=== PATIENT | male | born 1965 | race Two or more races ===

== ENCOUNTER 2019-12-05 21:58 | Inpatient (IN) | payer OTHER ==
[~2019-12-05] VITALS: Ht 172.7 cm; Wt 110.9 kg
[2019-12-06] VITALS (23 sets, daily range): BP systolic 106–142; BP diastolic 38–86
[2019-12-06 00:17] LABS: Alanine Aminotransferase 82 U/L (16-61); Albumin 3.6 g/dL (3.4-5.0); Anion Gap 7 (5-15); Aspartate Aminotransferase 43 U/L (15-37); BUN/Creatinine Ratio 10.7; Blood Urea Nitrogen 13 mg/dL (7-18); Calcium 8.5 mg/dL (8.5-10.1); Carbon Dioxide 20 mmol/L (21-32); Chloride 106 mmol/L (98-107); GFR African American 79 mL/min; GFR Non-African American 66 mL/min; Glucose 106 mg/dL (74-106); Potassium 4.6 mmol/L (3.5-5.1); Sodium 133 mmol/L (136-145)
[2019-12-06 00:20] LABS: Alkaline Phosphatase 95 U/L (45-117); Bilirubin, Total 0.6 mg/dL (0.2-1.0); Total Protein 8.7 g/dL (6.4-8.2)
[2019-12-06 00:20] LABS: Basophils # (auto) 0.1 uL; Basophils % (auto) 0.7 % (0.0-2.0); Eosinophils # (auto) 0.3 uL; Hematocrit 46.2 % (41.0-53.0); Hemoglobin 15.3 g/dL (13.5-17.5); Lymphocytes # (auto) 1.3 uL; Lymphocytes % (auto) 9.3 % (10.0-50.0); Mean Corpuscular Hgb Conc. 33.1 g/dL (32.0-36.0); Mean Corpuscular Volume 84.4 fL (80.0-100.0); Monocytes # (auto) 0.7 uL; Monocytes % (auto) 4.9 % (0.0-12.0); Neutrophils # (auto) 11.2 uL; Neutrophils % (auto) 83.1 % (37.0-80.0); Platelet Count (auto) 174 10^3/uL (140-450); Red Blood Cells 5.47 10^6/uL (4.5-5.90); Red Cell Distribution Width 13.6 % (11.8-14.3); White Blood Cell 13.4 10^3/uL (4.4-10.8)
[2019-12-06 00:28] LABS: INR 1.06 (0.9-1.15); Partial Thromboplastin Time 28.8 sec (23.64-32.05)
[2019-12-06] MEDS ORDERED: guaiFENesin-DM 100/10mg/5ml SYR PO ONE (01:45)
[2019-12-06] MEDS ORDERED: dilTIAZem 25 MG/5 ML VIAL IV ONE ×2 (02:15→05:45)
[2019-12-06 03:47] LABS: Amylase 50 U/L (25-115); Lipase 90 U/L (73-393)
[2019-12-06] MEDS ORDERED: ADENOSINE 6 MG/2 ML INJ IV ONE ×4 (05:27→05:45)
[2019-12-06] MEDS ORDERED: D5W/SOD CHL 0.45% 1,000 ML IV ONE (05:30)
[2019-12-06] MEDS ORDERED: NITROGLYCERIN 0.4 MG SL TAB SL PRN (05:30)
[2019-12-06] MEDS ORDERED: dilTIAZem 125mg/125ml BAG KIT 125 ML IV ONE (05:45)
[2019-12-06] MEDS: MORPHINE SULF INJ 2 MG/ML SYRINGE 1ML IV PRN ×2 (07:49→10:00)
[2019-12-06] MEDS: ASPirin 81 mg TAB PO SCH (10:21)
[2019-12-06] MEDS: METOPROLOL TARTRATE 50 MG TAB PO SCH (10:21)
[2019-12-06] MEDS: DIGOXIN 0.125 MG TAB PO SCH (10:22)
[2019-12-06] MEDS: ENOXAPARIN SOD 40 MG/0.4 ML SYRINGE SC SCH (10:22)
[2019-12-06] MEDS: PROMETHAZINE W/CODEINE 5 ML ORAL SYRUP PO PRN (11:05)
[2019-12-06] MEDS: cefTRIAXone 1GM/50ML D5W 50 ML IV SCH (13:09)
[2019-12-06] MEDS: AZITHROMYCIN 250 MG TAB PO SCH (13:12)
[2019-12-06] MEDS: ALBUTEROL SULF 2.5 MG/0.5ML(0.5%) NEB SOLN NEB SCH ×2 (13:45→22:00)
[2019-12-06] MEDS: HYDROcodone-ACET 10/325MG TAB PO PRN ×2 (15:01→20:13)
[2019-12-06] MEDS: NAPROXEN 500 MG TAB PO SCH ×2 (15:58→21:41)
[2019-12-06] MEDS ORDERED: IOHEXOL 350 MG/ML 100ML IJ ONE (16:01)
[2019-12-07] VITALS (18 sets, daily range): BP systolic 100–127; BP diastolic 48–87
[2019-12-07 05:27] LABS: Mean Corpuscular Hemoglobin 28.2 pg (28.0-32.0); Mean Corpuscular Hgb Conc. 33.4 g/dL (32.0-36.0); Mean Corpuscular Volume 84.4 fL (80.0-100.0); Platelet Count (auto) 118 10^3/uL (140-450); Red Blood Cells 5.33 10^6/uL (4.5-5.90); Red Cell Distribution Width 13.9 % (11.8-14.3); White Blood Cell 7.1 10^3/uL (4.4-10.8)
[2019-12-07 05:31] LABS: Basophils % (manual) 0 (0.0-2.0); Blast Cells 0; Myelocytes % 0; Promyelocytes % 0
[2019-12-07 05:46] LABS: Alanine Aminotransferase 58 U/L (16-61); Albumin 3.3 g/dL (3.4-5.0); Anion Gap 7 (5-15); Aspartate Aminotransferase 31 U/L (15-37); BUN/Creatinine Ratio 19.3; Blood Urea Nitrogen 21 mg/dL (7-18); Carbon Dioxide 26 mmol/L (21-32); Chloride 105 mmol/L (98-107); GFR African American 90 mL/min; GFR Non-African American 75 mL/min; Glucose 112 mg/dL (74-106); Potassium 4.2 mmol/L (3.5-5.1); Sodium 138 mmol/L (136-145)
[2019-12-07 05:49] LABS: Alkaline Phosphatase 90 U/L (45-117); Bilirubin, Total 0.4 mg/dL (0.2-1.0); Total Protein 7.4 g/dL (6.4-8.2)
[2019-12-07] MEDS: HYDROcodone-ACET 10/325MG TAB PO PRN ×3 (08:13→20:25)
[2019-12-07] MEDS: PROMETHAZINE W/CODEINE 5 ML ORAL SYRUP PO PRN (08:21)
[2019-12-07] MEDS: AZITHROMYCIN 250 MG TAB PO SCH (09:43)
[2019-12-07] MEDS: PANTOPRAZOLE 40 MG TAB PO SCH (09:43)
[2019-12-07] MEDS: NAPROXEN 500 MG TAB PO SCH ×2 (09:43→22:31)
[2019-12-07] MEDS: DIGOXIN 0.125 MG TAB PO SCH (09:43)
[2019-12-07] MEDS: ASPirin 81 mg TAB PO SCH (09:43)
[2019-12-07] MEDS: METOPROLOL TARTRATE 50 MG TAB PO SCH (09:46)
[2019-12-07] MEDS: cefTRIAXone 1GM/50ML D5W 50 ML IV SCH (09:47)
[2019-12-07] MEDS: ENOXAPARIN SOD 40 MG/0.4 ML SYRINGE SC SCH (09:47)
[2019-12-07] MEDS ORDERED: dilTIAZem 120MG ER CAP PO SCH (10:00)
[2019-12-07] MEDS ORDERED: levoFLOXacin 500 MG TAB PO SCH (10:00)
[2019-12-07 10:58] LABS: Eosinophils % (manual) 3 (0-7); Reactive Lymphocytes 1
[2019-12-07 11:03] LABS: Band Neutrophils % (manual) 2; Lymphocytes % (manual) 25 (10.0-50.0); Metamyelocytes % 0; Monocytes % (manual) 15 (0-12)
[2019-12-07] MEDS ORDERED: METOPROLOL TARTRATE 50 MG TAB PO SCH (14:00)
[2019-12-07] MEDS: ALBUTEROL SULF 2.5 MG/0.5ML(0.5%) NEB SOLN NEB SCH (19:40)
[2019-12-08] VITALS (9 sets, daily range): BP systolic 96–147; BP diastolic 65–84
[2019-12-08] MEDS: HYDROcodone-ACET 10/325MG TAB PO PRN ×3 (07:59→19:59)
[2019-12-08] MEDS: ALBUTEROL SULF 2.5 MG/0.5ML(0.5%) NEB SOLN NEB SCH ×2 (08:52→08:54)
[2019-12-08] MEDS: ASPirin 81 mg TAB PO SCH (09:08)
[2019-12-08] MEDS: DIGOXIN 0.125 MG TAB PO SCH (09:09)
[2019-12-08] MEDS: PANTOPRAZOLE 40 MG TAB PO SCH (09:10)
[2019-12-08] MEDS: NAPROXEN 500 MG TAB PO SCH ×2 (09:10→22:28)
[2019-12-08] MEDS: AZITHROMYCIN 250 MG TAB PO SCH (09:10)
[2019-12-08 09:25] LABS: Free T4 (Free Thyroxine) 0.88 ng/dL (0.89-1.76)
[2019-12-08 09:26] LABS: Free T3 1.99 pg/mL (2.3-4.2)
[2019-12-08] MEDS ORDERED: METOPROLOL TARTRATE 1MG/1ML-5ML VIAL IV ONE (09:30)
[2019-12-08] MEDS: cefTRIAXone 1GM/50ML D5W 50 ML IV SCH (09:32)
[2019-12-08] MEDS: ENOXAPARIN SOD 40 MG/0.4 ML SYRINGE SC SCH (09:34)
[2019-12-08] MEDS ORDERED: METOPROLOL TARTRATE 25 MG TAB PO SCH (10:00)
[2019-12-08] MEDS ORDERED: AMIODARONE HCL 150 MG in D5W 5% 100 ML IV ONE (11:15)
[2019-12-08 13:18] LABS: Hepatitis A Ab IgM Negative; Hepatitis B Core IgM Negative; Hepatitis B Surface Antigen Negative (Negative)
[2019-12-08 13:20] LABS: Hepatitis C Antibody Positive (Negative)
[2019-12-08] MEDS ORDERED: LEVALBUTEROL HCL 1.25 MG/3 ML NEB NEB PRN (14:15)
[2019-12-08] MEDS: AMIODARONE HCL 200 MG TAB PO SCH ×2 (14:33→22:27)
[2019-12-08] MEDS: ENOXAPARIN SOD 100 MG/1 ML SYRINGE SC SCH ×2 (14:34→22:28)
[2019-12-08] MEDS ORDERED: ENOXAPARIN SOD 100 MG/1 ML SYRINGE SC SCH (22:00)
[2019-12-08] MEDS: METOPROLOL TARTRATE 25 MG TAB PO SCH (22:28)
[2019-12-09 05:43] VITALS: BP 109/58
[2019-12-09] MEDS: cefTRIAXone 1GM/50ML D5W 50 ML IV SCH (08:44)
[2019-12-09 09:00] VITALS: BP 118/69
[2019-12-09 09:34] VITALS: BP 109/50
[2019-12-09] MEDS: AMIODARONE HCL 200 MG TAB PO SCH ×2 (10:29→22:24)
[2019-12-09] MEDS: ASPirin 81 mg TAB PO SCH (10:29)
[2019-12-09] MEDS: PANTOPRAZOLE 40 MG TAB PO SCH (10:29)
[2019-12-09] MEDS: HYDROcodone-ACET 10/325MG TAB PO PRN ×2 (10:30→15:04)
[2019-12-09] MEDS: NAPROXEN 500 MG TAB PO SCH ×2 (10:31→22:25)
[2019-12-09] MEDS: AZITHROMYCIN 250 MG TAB PO SCH (10:31)
[2019-12-09] MEDS: METOPROLOL TARTRATE 25 MG TAB PO SCH ×2 (10:31→22:24)
[2019-12-09] MEDS: DIGOXIN 0.125 MG TAB PO SCH (10:32)
[2019-12-09] MEDS: ENOXAPARIN SOD 100 MG/1 ML SYRINGE SC SCH (10:32)
[2019-12-09 13:13] VITALS: BP 103/66
[2019-12-09 17:00] VITALS: BP 123/70
[2019-12-09] MEDS: RIVAROXABAN 20 MG TAB PO SCH (17:33)
[2019-12-09 22:28] VITALS: BP 113/70
[2019-12-10 05:07] VITALS: BP 122/73
[2019-12-10] MEDS: HYDROcodone-ACET 10/325MG TAB PO PRN ×3 (07:40→19:58)
[2019-12-10] MEDS: cefTRIAXone 1GM/50ML D5W 50 ML IV SCH (08:44)
[2019-12-10 09:00] VITALS: BP 127/73
[2019-12-10] MEDS: AMIODARONE HCL 200 MG TAB PO SCH (09:46)
[2019-12-10] MEDS: ASPirin 81 mg TAB PO SCH (09:46)
[2019-12-10] MEDS: PANTOPRAZOLE 40 MG TAB PO SCH (09:46)
[2019-12-10] MEDS: DIGOXIN 0.125 MG TAB PO SCH (09:46)
[2019-12-10] MEDS: METOPROLOL TARTRATE 25 MG TAB PO SCH ×2 (09:46→22:00)
[2019-12-10] MEDS: AZITHROMYCIN 250 MG TAB PO SCH (09:47)
[2019-12-10] MEDS: NAPROXEN 500 MG TAB PO SCH ×2 (09:47→22:20)
[2019-12-10 10:13] LABS: Basophils # (auto) 0.1 uL; Eosinophils # (auto) 0.6 uL; Eosinophils % (auto) 11.9 % (0.0-7.0); Hematocrit 44.1 % (41.0-53.0); Hemoglobin 14.5 g/dL (13.5-17.5); Lymphocytes # (auto) 2.1 uL; Lymphocytes % (auto) 39.4 % (10.0-50.0); Mean Corpuscular Volume 84.9 fL (80.0-100.0); Monocytes # (auto) 0.6 uL; Monocytes % (auto) 11.1 % (0.0-12.0); Neutrophils # (auto) 1.9 uL; Neutrophils % (auto) 36.6 % (37.0-80.0); Nucleated Red Blood Cells % 0.2 %; Platelet Count (auto) 133 10^3/uL (140-450); Red Blood Cells 5.19 10^6/uL (4.5-5.90); Red Cell Distribution Width 13.8 % (11.8-14.3); White Blood Cell 5.2 10^3/uL (4.4-10.8)
[2019-12-10 10:28] LABS: Albumin 3.2 g/dL (3.4-5.0); Calcium 8.5 mg/dL (8.5-10.1); Potassium 4.4 mmol/L (3.5-5.1)
[2019-12-10 10:32] LABS: BUN/Creatinine Ratio 13.2; Bilirubin, Total 0.3 mg/dL (0.2-1.0); Total Protein 7.2 g/dL (6.4-8.2)
[2019-12-10 13:00] VITALS: BP 122/70
[2019-12-10 17:00] VITALS: BP 145/76
[2019-12-10] MEDS: RIVAROXABAN 20 MG TAB PO SCH (17:52)
[2019-12-10 21:58] VITALS: BP 129/74
[2019-12-11 05:00] VITALS: BP 143/71
[2019-12-11 09:00] VITALS: BP 147/89
[2019-12-11] MEDS ORDERED: MET25T PO (09:20)
[2019-12-11] MEDS ORDERED: RIV20T PO (09:20)
[2019-12-11] MEDS ORDERED: DIGO0.1238 PO (09:20)
[2019-12-11] MEDS ORDERED: AMIO200T4 PO (09:20)
[2019-12-11] MEDS: NAPROXEN 500 MG TAB PO SCH (09:36)
[2019-12-11] MEDS: PANTOPRAZOLE 40 MG TAB PO SCH (09:36)
[2019-12-11] MEDS: ASPirin 81 mg TAB PO SCH (09:36)
[2019-12-11] MEDS: AZITHROMYCIN 250 MG TAB PO SCH (09:36)
[2019-12-11] MEDS: METOPROLOL TARTRATE 25 MG TAB PO SCH (09:37)
[2019-12-11] MEDS: DIGOXIN 0.125 MG TAB PO SCH (09:37)
[2019-12-11] MEDS: HYDROcodone-ACET 10/325MG TAB PO PRN (09:37)
[2019-12-11] MEDS ORDERED: AMIODARONE HCL 200 MG TAB PO SCH (10:00)
[2019-12-11 10:25] VITALS: BP 147/89
[2019-12-11 13:00] VITALS: BP 136/75
== END 2019-12-11 13:50 | DRG 309 ==
LOC: ER 21:58 → EEVIPCON 21:58 → EDBD 21:58 → TELE 21:59 → ICU WEST 12-06 09:21 → TELE-E-ADS 12-07 15:54
PROVIDERS: ADMIT Internal Medicine; ATTEND Internal Medicine
DX: I48.91 Unspecified atrial fibrillation (principal); D68.69 Other thrombophilia; I25.10 Atherosclerotic heart disease of native coronary artery without angina pectoris; E11.9 Type 2 diabetes mellitus without complications; D72.829 Elevated white blood cell count, unspecified; K75.9 Inflammatory liver disease, unspecified; F17.210 Nicotine dependence, cigarettes, uncomplicated
CPT/HCPCS: 36415; 70450; 71045; 71275; 80053; 80074; 80162; 82150; 83690; 83880; 84439; 84443; 84481; 84484; 85007; 85025; 85027; 85610; 85730; 87081; 93005; 94640; 96365; 96366; 96375; 96376; G0378; J0153; J0696; J7060

== ENCOUNTER 2020-01-26 15:40 | Emergency (ER) | payer OTHER ==
[~2020-01-26] VITALS: Ht 172.7 cm; Wt 102.5 kg
[~2020-01-26 15:40] MED LIST: AMIO200T4 PO; DIGO0.1238 PO; MET25T PO; RIV20T PO
[2020-01-26] MEDS ORDERED: ASPirin 81 mg TAB PO ONE (15:45)
[2020-01-26 15:59] VITALS: BP 125/71
[2020-01-26 16:02] LABS: Basophils # (auto) 0.1 10 ^3/uL (0-0.2); Basophils % (auto) 1.1 % (0.0-2.0); Eosinophils # (auto) 0.9 10 ^3/uL (0-0.8); Eosinophils % (auto) 8.7 % (0.0-7.0); Hematocrit 43.7 % (41.0-53.0); Hemoglobin 15.3 g/dL (13.5-17.5); Lymphocytes # (auto) 3.5 10 ^3/uL (0.4-5.4); Lymphocytes % (auto) 33.8 % (10.0-50.0); Mean Corpuscular Hemoglobin 29.5 pg (28.0-32.0); Mean Corpuscular Hgb Conc. 35.1 g/dL (32.0-36.0); Mean Corpuscular Volume 84.1 fL (80.0-100.0); Monocytes # (auto) 0.6 10 ^3/uL (0-1.3); Monocytes % (auto) 6.3 % (0.0-12.0); Neutrophils # (auto) 5.1 10 ^3/uL (1.6-8.6); Neutrophils % (auto) 50.1 % (37.0-80.0); Nucleated Red Blood Cells % 0.2 %; Platelet Count (auto) 183 10^3/uL (140-450); Red Blood Cells 5.19 10^6/uL (4.5-5.90); Red Cell Distribution Width 13.8 % (11.8-14.3); White Blood Cell 10.2 10^3/uL (4.4-10.8)
[2020-01-26 16:19] LABS: Albumin 3.8 g/dL (3.4-5.0); Anion Gap 8 (5-15); Blood Urea Nitrogen 15 mg/dL (7-18); Calcium 8.7 mg/dL (8.5-10.1); Carbon Dioxide 25 mmol/L (21-32); Chloride 109 mmol/L (98-107); Glucose 118 mg/dL (74-106); Potassium 4.2 mmol/L (3.5-5.1); Sodium 142 mmol/L (136-145)
[2020-01-26 16:25] LABS: Alanine Aminotransferase 90 U/L (16-61); Alkaline Phosphatase 104 U/L (45-117); Aspartate Aminotransferase 43 U/L (15-37); BUN/Creatinine Ratio 13.9; Bilirubin, Total 0.4 mg/dL (0.2-1.0); GFR African American 91 mL/min; GFR Non-African American 75 mL/min; Total Protein 8.3 g/dL (6.4-8.2)
[2020-01-26] MEDS ORDERED: NITROGLYCERIN 0.4 MG SL TAB SL ONE (17:00)
== END 2020-01-26 17:39 | disposition home or self-care (01) ==
LOC: ER 15:40 → EEVIPCON 15:40 → ER 17:39
DX: R07.89 Other chest pain (principal); F41.9 Anxiety disorder, unspecified
CPT/HCPCS: 36415; 80053; 84484; 85025; 93005